=== PATIENT | female | born 1995 | race Caucasian/White ===

== ENCOUNTER → 2023-08-03 13:58 | Outpatient (BNVA) | payer BC, MEDICAID, SELFPAY | PROVIDERS: PCP Internal Medicine; Visit Provider Internal Medicine | DX: M25.551 Pain in right hip (principal) | CPT/HCPCS: 73502 ==

== ENCOUNTER → 2023-11-08 14:07 | Outpatient (BNVA) | payer BC, MEDICAID, SELFPAY | PROVIDERS: PCP Internal Medicine; Referring Provider Internal Medicine; Visit Provider Orthopaedic Surgery | DX: M54.2 Cervicalgia (principal); M79.604 Pain in right leg | CPT/HCPCS: 72040 ==

== ENCOUNTER 2023-12-15 12:29 | Outpatient (CLI) | payer BC, MEDICAID, SELFPAY ==
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
== END 2023-12-15 12:30 | disposition home or self-care (01) ==
LOC: RAD 12:29
PROVIDERS: PCP Internal Medicine; Visit Provider Family Medicine
DX: M54.2 Cervicalgia (principal); Z87.81 Personal history of (healed) traumatic fracture
CPT/HCPCS: 72141

== ENCOUNTER 2023-12-15 12:29 | Outpatient (CLI) | payer BC, MEDICAID, SELFPAY ==
--- NOTE | 2023-12-15 15:45 | US_ITS ---
WS: [id number] THYROID ULTRASOUND HISTORY: NODULE COMPARISON: None available. Right lobe: 1.6 cm x 1.9 cm x 5.0 cm (w x ap x l). Volume: 7.2 cm3. Normal sized thyroid. Pseudo nodular appearance of the entire thyroid lobe with no discrete mass. No color Doppler was submitted. Left lobe: 0.6 cm x 0.7 cm x 1.6 cm (w x ap x l). Volume: 0.3 cm3. Small atrophic LEFT thyroid. No mass or nodularity. Isthmus: 0.4 cm. IMPRESSION: 1. Severe atrophy of the LEFT thyroid lobe. 2. Pseudonodular appearance of the RIGHT thyroid is most consistent with Dread's thyroiditis. No color Doppler was submitted for this exam.
== END 2023-12-15 12:30 | disposition home or self-care (01) ==
LOC: RAD 12:30
PROVIDERS: PCP Internal Medicine; Visit Provider Family Medicine
DX: E04.1 Nontoxic single thyroid nodule (principal)
CPT/HCPCS: 76536

== ENCOUNTER 2024-03-23 13:00 | Outpatient (CLI) | payer BC, MEDICAID, SELFPAY ==
--- NOTE | 2024-03-23 13:00 | MR_ITS ---
WS: [email or web address] EXAMINATION: MR hip RT wo con* [id number] ORDER DATE: 03/23/2024 12:56 PM COMPARISON: None. HISTORY: hip pain CONTRAST: None. TECHNIQUE: Coronal STIR of the Pelvis. Coronal proton density, coronal T1, axial T2 fat sat, axial T1 , sagittal T2 fat sat, and sagittal T1 performed of the hip. FINDINGS: Normal bone marrow signal in the bony pelvis and sacrum. Normal sacral ala. RIGHT femoral head and ne ck normal in appearance. No bone marrow edema. No acute fractures. No significant joint effusion. LEF T femoral head and neck are normal in appearance. Proximal femurs are normal. No edema in the sacroil iac joints. Normal visualized RIGHT pubic rami. No evidence of trochanteric bursitis. Visualized sacrum and coccyx are normal in appearance. Anteverted uterus. Urine distended bladder. Mu lti follicular ovaries bilaterally. Normal visualized RIGHT hip soft tissues. MR/MR hip RT wo con* [id number] IMPRESSION: 1. RIGHT hip is normal in appearance. No bone marrow edema or joint effusion. No acute fractures. 2. Visualized LEFT hip is normal in appearance. 3. Normal bone marrow signal in the bony pelvis and sacrum. 4. Normal visualized soft tissues about the RIGHT hip. 5. No other acute findings.
== END 2024-03-23 13:01 | disposition home or self-care (01) ==
PROVIDERS: PCP Internal Medicine; Visit Provider Orthopaedic Surgery
DX: M25.559 Pain in unspecified hip (principal)
CPT/HCPCS: 73721

== ENCOUNTER → 2024-06-25 13:00 | Outpatient (BNVA) | payer BC, MEDICAID, SELFPAY | PROVIDERS: PCP Family Medicine; Visit Provider Nurse Practitioner Family | DX: Z79.899 Other long term (current) drug therapy (principal) | CPT/HCPCS: 80053 ==

== ENCOUNTER → 2024-08-27 14:00 | Outpatient (BNVA) | payer BC, MEDICAID, SELFPAY | PROVIDERS: PCP Family Medicine; Visit Provider Family Medicine | DX: R79.89 Other specified abnormal findings of blood chemistry (principal); R63.4 Abnormal weight loss; R11.2 Nausea with vomiting, unspecified; R63.0 Anorexia; E04.1 Nontoxic single thyroid nodule; E03.9 Hypothyroidism, unspecified; E55.9 Vitamin D deficiency, unspecified | CPT/HCPCS: 80053; 82306; 82607; 82728; 82746; 83550; 83735; 84439; 84443; 85025; 85651; 86140 ==

== ENCOUNTER → 2025-04-01 11:44 | Outpatient (BNVA) | payer BC, MEDICAID, SELFPAY | PROVIDERS: PCP Family Medicine; Visit Provider Family Medicine | DX: E04.1 Nontoxic single thyroid nodule (principal); E03.9 Hypothyroidism, unspecified; G62.9 Polyneuropathy, unspecified; M54.2 Cervicalgia; M54.9 Dorsalgia, unspecified; G89.29 Other chronic pain; R79.89 Other specified abnormal findings of blood chemistry | CPT/HCPCS: 80053; 82607; 84439; 84443; 84481; 85025; 86140; 86376 ==

== ENCOUNTER 2025-04-04 14:20 | Outpatient (CLI) | payer BC, MEDICAID, SELFPAY ==
--- NOTE | 2025-04-04 14:30 | MR_ITS ---
WS: [id number] MRI HEAD WITHOUT CONTRAST TECHNIQUE: Sagittal T1, T2 axial, T2 axial FLAIR, axial and coronal T1 images, axial susceptibility weighted imaging, axial diffusion weighted images, and coronal T2 images were obtained. CLINICAL INFORMATION: R22.0 - Localized swelling, mass and lump, head COMPARISON: None. FINDINGS: No evidence of restricted diffusion to suggest acute ischemia. 1 or 2 tiny foci of T2 hyperintensity in the frontal white matter nonspecific in a patient of this age but can be seen with migraine headaches. No other suspicious intracranial signal abnormalities. Normal posterior fossa. Normal vascular flow voids at the skull base. No extra-axial fluid collections. No evidence of mass or mass effect. Normal optic chiasm and pituitary infundibulum. Temporal lobes and hippocampal formations are normal in appearance. No hemosiderin on the susceptibly weighted images. No suspicious scalp lesions visualized MR/MR head wo con* [id number] IMPRESSION: 1. No evidence of restricted diffusion to suggest acute ischemia. 2. 1 or 2 tiny foci of T2 hyperintensity in the frontal white matter nonspecif ic in a patient this age but can be seen with migraine headaches. 3. No other suspicious intracranial signal abnormalities. 4. Small mastoid effusions. 5. No hemosiderin on susceptibility-weighted images. 6. No other acute findings.
== END 2025-04-04 14:21 | disposition home or self-care (01) ==
LOC: RAD 14:23
PROVIDERS: PCP Family Medicine; Visit Provider Family Medicine
DX: R22.0 Localized swelling, mass and lump, head (principal); R51.9 Headache, unspecified; G89.29 Other chronic pain; R29.90 Unspecified symptoms and signs involving the nervous system
CPT/HCPCS: 70551

== ENCOUNTER 2025-04-29 13:16 | Outpatient (CLI) | payer BC, MEDICAID, SELFPAY ==
--- NOTE | 2025-04-29 13:15 | USR_ITS ---
PROCEDURE INFORMATION: Exam: US Soft Tissue Head and Neck, Thyroid Exam date and time: 04/29/2025 1:34 PM Age: 30 years old Clinical indication: Condition or disease; Thyroid disorder; Other: Nodule; Additional info: E04.1 - nontoxic single thyroid nodule TECHNIQUE: Imaging protocol: Real-time ultrasound scan of the neck with image documentation. Exam focused on the thyroid. COMPARISON: US thyroid [id number] 12/15/2023 3:39 PM FINDINGS: Right thyroid lobe: Measures 4.7 cm sagittal diameter 1.8 cm AP diameter, and 1.7 cm in transverse. Heterogeneous hypervascular. No discrete nodules Left thyroid lobe: Small. Measures 3.3 cm sagittal diameter, 0 9 cm AP diameter and 6 cm in transverse. No nodule. Isthmus: Measures 0 3 cm AP. No nodule. US/US thyroid [id number] IMPRESSION: 1. Heterogeneous right lobe of the thyroid with increased vascularity. This consistent with Dread's thyroiditis. No discrete nodule. 2. Small left lobe of the thyroid again seen without nodule.
== END 2025-04-29 13:17 | disposition home or self-care (01) ==
LOC: RAD 13:17
PROVIDERS: PCP Family Medicine; Visit Provider Family Medicine
DX: E04.1 Nontoxic single thyroid nodule (principal)
CPT/HCPCS: 76536